=== PATIENT | female | born 1995 | race Caucasian/White ===

== ENCOUNTER 2017-08-25 02:16 | Emergency (ER) | payer MEDICAID ==
[~2017-08-25] VITALS: Ht 154.9 cm; Wt 69.8 kg
[2017-08-25 02:30] VITALS: Ht 154.9 cm; Wt 69.8 kg
[2017-08-25 03:48] LABS: BASOPHIL % 0.4 % (0-2); PLATELET COUNT 211 x10^3mcL (130-400)
[2017-08-25 05:44] LABS: microscopic required? YES; urine erythrocyte 3+ (NEGATIVE)
[2017-08-25 06:12] VITALS: BP 102/74
== END 2017-08-25 06:12 | disposition home or self-care (01) ==
LOC: ED 02:16
PROVIDERS: Emergency Medicine
DX: O20.0 Threatened abortion (principal); Z3A.15 15 weeks gestation of pregnancy
CPT/HCPCS: 36415; Q0092

== ENCOUNTER 2019-08-18 15:15 | Emergency (ER) | payer MEDICAID ==
[~2019-08-18] VITALS: Ht 152.4 cm; Wt 72.6 kg
[2019-08-18 15:33] VITALS: Ht 152.4 cm; Wt 72.6 kg
[2019-08-18 16:28] VITALS: BP 113/60
== END 2019-08-18 16:28 | disposition home or self-care (01) ==
LOC: ED 15:15
DX: O99.512 Diseases of the respiratory system complicating pregnancy, second trimester (principal); J06.9 Acute upper respiratory infection, unspecified; Z3A.24 24 weeks gestation of pregnancy